=== PATIENT | male | born 1965 | race Caucasian/White ===

== ENCOUNTER 2018-10-16 13:19 | Emergency (ER) | payer SELFPAY ==
--- NOTE | 2018-10-16 13:35 | RAD ---
Exam: Chest one view HISTORY:Chest pain Comparison: 11/23/2017 FINDINGS: Cardiac silhouette:Upper normal Pulmonary vessels: Slightly prominent Costophrenic angles: Clear LUNGS: Patchy interstitial opacities, without consolidation or mass. Pneumothorax: None Osseous abnormalities: None IMPRESSION: 1. Volume overload with interstitial edema.
[2018-10-16] MEDS ORDERED: Nitroglycerin 2% Ointment 1 INCH/1 GM Packet ONE (13:44)
[2018-10-16 13:46] LABS: #Basophils 0.1 thou/uL (0.0-0.2); #Eosinphils 0.1 thou/uL (0.0-0.7); #Monocytes 0.7 thou/uL (0.11-0.59); #Neutrophils 3.7 thou/uL (1.40-6.50); %Eosinophils 1.6 % (0.0-10.0); %Lymphocytes 30.1 % (21.0-51.0); %Monocytes 10.6 % (0.0-10.0); %Neutrophils 55.7 % (42.0-75.0); Hemoglobin 16.2 g/dL (14.0-18.0); Mean Corpuscular Hemoglobin 30.1 pg (27.0-31.0); Mean Platelet Volume 9.6 fL (7.4-10.4); Platelet Count 183 thou/uL (130-400); RBC Distribution Width 11.6 % (11.5-14.5); Red Blood Cell (RBC) Count 5.38 mill/uL (4.70-6.10); White Blood Cell (WBC) Count 6.7 thou/uL (4.8-10.8)
[2018-10-16 14:06] LABS: ALT (SGPT) 168 U/L (8-55); AST (SGOT) 101 U/L (5-34); Albumin 3.9 g/dL (3.5-5.0); Alkaline Phosphatase 69 U/L (40-150); Anion Gap 12 mmol/L (10-20); BUN (Urea Nitrogen) 13 mg/dL (8.4-25.7); Bilirubin, Total 0.6 mg/dL (0.2-1.2); Calc. Creatinine Clearance 0 mL/min (70-130); Calcium 9.4 mg/dL (7.8-10.44); Carbon Dioxide 26 mmol/L (22-29); Chloride 102 mmol/L (98-107); Estimated GFR-MDRD Greater than 90; Globulin 4.4 g/dL (2.4-3.5); Glucose 87 mg/dL (70-105); Potassium 4.1 mmol/L (3.5-5.1); Protein, Total 8.3 g/dL (6.0-8.3); Sodium 136 mmol/L (136-145)
== END 2018-10-16 15:36 | disposition short-term general hospital (02) ==
LOC: MADERS 13:19
DX: I24.9 Acute ischemic heart disease, unspecified (principal); I10 Essential (primary) hypertension; K75.9 Inflammatory liver disease, unspecified; E78.00 Pure hypercholesterolemia, unspecified; I25.2 Old myocardial infarction; F17.210 Nicotine dependence, cigarettes, uncomplicated; Z86.73 Personal history of transient ischemic attack (TIA), and cerebral infarction without residual deficits
CPT/HCPCS: 36415; 71045; 80053; 83880; 84484; 85025; 93005

== ENCOUNTER 2019-09-07 08:37 | Outpatient (CLI) | payer OTHER ==
--- NOTE | 2019-09-07 09:20 | RAD ---
EXAM: XR Cervical Sp Com W/Obl Fl/Ex PROVIDED CLINICAL HISTORY: Fall 3 weeks ago. None in hands. COMPARISON: None FINDINGS: Cervicothoracic junction and C7 vertebral body are obscured due to overlying structures. Trace jose listhesis of C4 on C5 is present. Vertebral body heights are within normal limits. Interspinous distances are also within normal limits. Multilevel facet hypertrophic changes are present. Preverteb ral soft tissues have a normal appearance. There is bony encroachment on the neural foramina bilaterally at the C3-4 level with suggestion of severe bilateral neural foraminal narrowing due to b concetta encroachment as noted on the oblique images. Mild to moderate left-sided neural foraminal narrowing is seen at the C4-5 level. Surgical clips are seen along the right neck. Vascular calcifications are seen overlying the left neck with bulky atherosclerotic calcifications in the region of the carotid arteries. IMPRESSION: 1. Limited evaluation of the C7 vertebral body and cervicothoracic junction. 2. Slight anterolisthesis of C4 on C5 likely related to prominent facet hypertrophic changes. 3. Multilevel facet hypertrophic changes. There is severe bilateral neural foraminal narrowing at C3- 4 level due to bony encroachment. 4. Vascular calcifications overlie the region of the carotid arteries primarily on the left with surg ical clips overlying the right neck.
== END 2019-09-07 08:38 | disposition home or self-care (01) ==
LOC: MADRAD 08:37
PROVIDERS: ATTEND Physician Assistant
DX: R20.2 Paresthesia of skin (principal); M43.12 Spondylolisthesis, cervical region; M47.812 Spondylosis without myelopathy or radiculopathy, cervical region; M48.02 Spinal stenosis, cervical region; I65.23 Occlusion and stenosis of bilateral carotid arteries; Z91.81 History of falling
CPT/HCPCS: 72052

== ENCOUNTER 2019-12-17 14:47 | Emergency (ER) | payer SELFPAY ==
[~2019-12-17 14:47] MED LIST: Iopamidol 370 76% 125 ML VIAL FS ONE; Sodium Chloride 0.9% 100 ML BAG ONE
[2019-12-17 15:01] LABS: #Basophils 0.1 thou/uL (0.0-0.2); #Eosinphils 0.1 thou/uL (0.0-0.7); #Lymphocytes 2.7 thou/uL (1.20-3.40); #Monocytes 0.5 thou/uL (0.11-0.59); #Neutrophils 2.9 thou/uL (1.40-6.50); %Basophils 1.5 % (0.0-1.0); %Eosinophils 1.9 % (0.0-10.0); %Monocytes 8.1 % (0.0-10.0); %Neutrophils 45.6 % (42.0-75.0); Hemoglobin 15.6 g/dL (14.0-18.0); Mean Corpuscular HGB CONC 32.6 g/dL (32.0-36.0); Mean Corpuscular Hemoglobin 29.8 pg (27.0-31.0); Mean Corpuscular Volume 91.2 fL (78.0-98.0); Platelet Count 212 thou/uL (130-400); RBC Distribution Width 11.5 % (11.5-14.5); Red Blood Cell (RBC) Count 5.24 mill/uL (4.70-6.10); White Blood Cell (WBC) Count 6.4 thou/uL (4.8-10.8)
[2019-12-17 15:08] LABS: PTT 31.2 sec (22.9-36.1); Prothrombin Time 12.8 sec (12.0-14.7)
[2019-12-17 15:18] LABS: ALT (SGPT) 169 U/L (8-55); AST (SGOT) 91 U/L (5-34); Alkaline Phosphatase 57 U/L (40-110); Anion Gap 14 mmol/L (10-20); BUN (Urea Nitrogen) 11 mg/dL (8.4-25.7); Bilirubin, Total 0.6 mg/dL (0.2-1.2); Calc. Creatinine Clearance 0 mL/min (70-130); Calcium 9.4 mg/dL (7.8-10.44); Carbon Dioxide 25 mmol/L (22-29); Chloride 105 mmol/L (98-107); Estimated GFR-MDRD Greater than 90; Globulin 4.2 g/dL (2.4-3.5); Glucose 103 mg/dL (70-105); Potassium 3.8 mmol/L (3.5-5.1); Protein, Total 8.2 g/dL (6.0-8.3); Sodium 140 mmol/L (136-145)
[2019-12-17 15:20] LABS: CKMB 0.8 ng/mL (0-6.6); Troponin I 0.014 ng/mL (< 0.028)
[2019-12-17] MEDS ORDERED: Aspirin Chewable 81 MG TAB ONE (15:56)
--- NOTE | 2019-12-17 16:01 | CT ---
EXAM: CT ANGIOGRAM OF THE HEAD AND NECK INDICATION: Possible stroke. Left-sided weakness COMPARISON: 08/09/2019 TECHNIQUE: CT angiogram of the head and neck are performed in the axial plane. Three-dimensional refo rmatted images are submitted for interpretation. FINDINGS: CTA OF THE HEAD WITH AND WITHOUT CONTRAST: POSTCONTRAST CT OF BRAIN: Pathologic enhancement: No pathologic enhancement the brain. Postcontrast soft tissue neck CT: Aerodigestive tract:Nonspecific enhancement along with subcentimeter hypodensities in the maxillary s inuses tonsillar pillar Sinuses: Mild mucosal disease of the ethmoid air cells and bilateral maxillary sinuses. Orbits: Bilateral ocular lenses are appropriately located. Both globes are intact. Retrobulbar fat is preserved. Symmetric attenuation the optic nerves and ocular rectus muscles. Salivary glands:Appropriate attenuation Thyroid gland: Appropriate attenuation Lymph nodes: No evidence of lymphadenopathy by size criteria. Paraspinal muscles: Symmetric attenuation of the sternocleidomastoid muscles. Appropriate attenuation of the paraspinal muscles. Cervical spine:Vertebral body height is maintained. No fracture. No significant central canal stenosi s or significant neural foraminal narrowing. Limited evaluation by technique. Craniocervical lordosis is presumed be positional. Anterolisthesis is also presumed to be due to degenerative change of the facets. Upper mediastinum and lung apices: No acute abnormality CTA OF THE NECK WITH CONTRAST: Aorta: Appropriate enhancement and luminal diameter of the visualized aorta Right carotid artery: Appropriate enhancement and luminal diameter of the origin of the carotid arter y, innominate artery, common carotid artery, carotid bifurcation and internal carotid artery. There is stable mild stenosis of the right carotid bifurcation and proximal internal carotid artery due to a combination of calcified and noncalcified plaque. There appear to be surgical clips suggesting a previous right carotid endarterectomy. Left carotid: Appropriate enhancement and luminal diameter the origin of the left common carotid gus ry, carotid bifurcation and internal carotid artery. There is stable mild atherosclerosis involving the left carotid bifurcation and proximal internal carotid artery. No significant stenosis based upon NASCET criteria. Subclavian arteries:Symmetric and patent Vertebral arteries:Dominant left vertebral artery which is patent throughout its course in the neck. Stable filling defect in the right cervical vertebral artery suggesting eccentric thrombus. CTA OF THE BRAIN: Intracranial internal carotid arteries:Appropriate enhancement and luminal diameter. Atherosclerosis without significant narrowing of the bilateral paraclinoid segments and left cavernous carotid segment Anterior circulation: Appropriate enhancement and luminal diameter the A1 segments, M1 segments, prox imal A2 segments and proximal MCA branches Intracranial vertebral arteries: Appropriate enhancement and luminal diameter. Visualized PICA artery origins have appropriate enhancement and luminal diameter Posterior circulation: Both vertebral arteries supply normal caliber basilar artery. Bilateral P1 seg ments have appropriate enhancement and luminal diameter IMPRESSION: 1. No hemodynamically significant stenosis, occlusion or aneurysmal formation. 2. Stable atherosclerosis involving the cervical and intracranial carotid arteries and right vertebra l artery Results study conveyed to Dr. Hernandez via [employer] 12/17/2019 at 3:57 PM Code CR
--- NOTE | 2019-12-17 16:13 | CT ---
CT BRAIN WITHOUT CONTRAST: Date: 12/17/2019 HISTORY: Left-sided weakness, possible stroke. COMPARISON: 11/26/2019. FINDINGS: Changes of cortical atrophy, chronic small vessel ischemic disease, and old lacunar infarctions of ba sarai ganglia and thalami seen. Ventricular size appropriate and basilar cisterns patent. No evidence of acute infarct, hemorrhage, midline shift, or abnormal extra-axial fluid collections ar e seen. The bony calvarium is intact. The visualized sinuses and mastoid air cells are well aerated. IMPRESSION: No CT evidence of acute intracranial process. POS: [facility]
== END 2019-12-17 16:06 | disposition short-term general hospital (02) ==
LOC: MADERS 14:47
DX: I67.82 Cerebral ischemia (principal); R47.81 Slurred speech; G81.94 Hemiplegia, unspecified affecting left nondominant side; I10 Essential (primary) hypertension; E78.00 Pure hypercholesterolemia, unspecified; I25.2 Old myocardial infarction; M48.00 Spinal stenosis, site unspecified; F17.210 Nicotine dependence, cigarettes, uncomplicated
CPT/HCPCS: 36416; 70450; 70496; 70498; 80053; 82553; 84484; 85025; 85610; 85730; 93005; J3490; Q9967

== ENCOUNTER 2020-03-10 09:36 | Emergency (ER) | payer SELFPAY ==
[2020-03-10 09:49] LABS: #Basophils 0.1 thou/uL (0.0-0.2); #Eosinphils 0.2 thou/uL (0.0-0.7); #Monocytes 0.8 thou/uL (0.11-0.59); #Neutrophils 3.5 thou/uL (1.40-6.50); %Basophils 1.7 % (0.0-1.0); %Eosinophils 2.7 % (0.0-10.0); %Lymphocytes 29.8 % (21.0-51.0); %Monocytes 12.1 % (0.0-10.0); %Neutrophils 53.7 % (42.0-75.0); Hemoglobin 15.5 g/dL (14.0-18.0); Mean Corpuscular HGB CONC 32.9 g/dL (32.0-36.0); Mean Corpuscular Hemoglobin 30.1 pg (27.0-31.0); Mean Corpuscular Volume 91.4 fL (78.0-98.0); Mean Platelet Volume 9.2 fL (7.4-10.4); Platelet Count 197 thou/uL (130-400); RBC Distribution Width 11.9 % (11.5-14.5); Red Blood Cell (RBC) Count 5.14 mill/uL (4.70-6.10); White Blood Cell (WBC) Count 6.5 thou/uL (4.8-10.8)
[2020-03-10 09:55] LABS: PTT 31.5 sec (22.9-36.1); Prothrombin Time 13.4 sec (12.0-14.7)
[2020-03-10 10:05] LABS: ALT (SGPT) 81 U/L (8-55); AST (SGOT) 53 U/L (5-34); Albumin 4.1 g/dL (3.5-5.0); Alkaline Phosphatase 58 U/L (40-110); Anion Gap 16 mmol/L (10-20); BUN (Urea Nitrogen) 8 mg/dL (8.4-25.7); Bilirubin, Total 0.8 mg/dL (0.2-1.2); Calc. Creatinine Clearance 0 mL/min (70-130); Calcium 9.6 mg/dL (7.8-10.44); Carbon Dioxide 24 mmol/L (22-29); Chloride 105 mmol/L (98-107); Estimated GFR-MDRD Greater than 90; Globulin 4.6 g/dL (2.4-3.5); Glucose 112 mg/dL (70-105); Potassium 3.9 mmol/L (3.5-5.1); Protein, Total 8.7 g/dL (6.0-8.3); Sodium 141 mmol/L (136-145)
--- NOTE | 2020-03-10 11:15 | CT ---
CT HEAD WITHOUT CONTRAST: Date: 03/10/2020 INDICATION: Right side deficit. Numbness and tingling with dizziness. Comparison made to head CT of 12/19/2019. FINDINGS: Moderately severe chronic ischemic white matter changes are noted with evidence of numerous lacunar i nfarcts in the deep white matter of both cerebral hemispheres. These findings were present on the nghia or exam. They are prominent for patient's age. There is no evidence of acute mass or hemorrhage. No evidence of acute cortical infarct. Paranasal sinuses and mastoids appear clear. IMPRESSION: Moderately severe chronic ischemic white matter changes with evidence of lacunar infarcts in the deep white matter of both cerebral hemispheres. Probably old lacunar infarcts in the thalami bilaterally. These findings appear stable, but are prominent for patient's age. Acute lacunar infarcts cannot be excluded if there are neurologic deficits. Suggest further evaluation with MRI brain to assess for ac onel lacunar infarct. POS: [facility]
--- NOTE | 2020-03-10 11:16 | CT ---
CT CHEST WITH CONTRAST: Date: 03/10/2020 INDICATION: Cough. Right side deficit. FINDINGS: There is cardiomegaly and mild vascular congestion. The lung llanes are otherwise well aerated with n o evidence of inflammatory infiltrate. There is no evidence of effusion. Mediastinum is unremarkable. Images through upper abdomen unremarkable. Osseous structures show degenerative changes in the spine. Vertebral bodies maintain height and alignment. IMPRESSION: Cardiomegaly with mild vascular congestion. No evidence of infiltrate or effusion. POS: [facility]
[2020-03-10] MEDS ORDERED: Aspirin Chewable 81 MG TAB ONE (11:18)
--- NOTE | 2020-03-10 11:37 | CT ---
CTA HEAD CTA NECK: Multiple axial tomograms obtained through the head and neck following angio protocol with multiplanar reconstruction and 3D post processing. INDICATION: Dizziness and numbness. Assess for possible stroke. Correlation is made to a recent CTA head and ne ck 12/17/2019. FINDINGS: CTA HEAD: Intracranial internal carotid arteries are patent. The anterior cerebral arteries are patent with a dominant right anterior cerebral. Middle cerebral arteries are patent and symmetric. There is no stenosis or occlusion in either M1 se gment. Basilar artery is patent. Posterior cerebral arteries are patent and symmetric. Dural venous sinuses are patent. IMPRESSION: 1. No proximal stenosis or occlusion or significant interval change. 2. The patient has severe chronic ischemic white matter changes with numerous lacunar infarcts in th e deep white matter. Prior MRI of 12/18/2019 described an acute lacunar infarct at that time in the c entrum semiovale. 3. If there are new neurologic deficits, MRI is recommended to assess for new lacunar infarcts. CTA NECK: No stenosis at the origin of the arch vessels. Common carotid arteries are patent and symmetric. Mild to moderate atherosclerotic changes at both bulbs and proximal ICAs. There is thrombus in the b ulb on the right with peripheral calcification bilaterally. The bulb findings are stable from 020. No evidence of hemodynamically significant stenosis. The vertebral arteries are patent. There is atherosclerotic calcification in the cervical portion of both vertebral arteries with mild luminal narrowing seen in the right vertebral artery at the level of C4. This is a stable finding. No soft tissue abnormality. IMPRESSION: 1. Atherosclerotic changes in both bulbs with peripheral thrombus in the right bulb indents calcific ation in the left bulb and left proximal internal carotid artery. No evidence of hemodynamically sig nificant stenosis. The findings are stable. 2. Atherosclerotic changes seen in both vertebral arteries in the cervical portion with mild luminal narrowing in the right vertebral are the C4 level which appears stable. POS: [facility]
[2020-03-10] MEDS ORDERED: Iopamidol 370 76% 125 ML VIAL FS ONE (13:37)
== END 2020-03-10 12:05 | disposition short-term general hospital (02) ==
LOC: MADERS 09:36
DX: I63.9 Cerebral infarction, unspecified (principal); R29.810 Facial weakness; I10 Essential (primary) hypertension; E78.5 Hyperlipidemia, unspecified; R29.702 NIHSS score 2; F17.210 Nicotine dependence, cigarettes, uncomplicated; Z79.899 Other long term (current) drug therapy; Z86.73 Personal history of transient ischemic attack (TIA), and cerebral infarction without residual deficits
CPT/HCPCS: 36415; 36416; 70450; 70496; 70498; 71260; 80053; 84484; 85025; 85610; 85730; 93005; Q9967

== ENCOUNTER 2020-10-29 08:09 | Emergency (ER) | payer OTHER ==
[2020-10-29 08:43] LABS: #Basophils 0.1 thou/uL (0.0-0.2); #Eosinphils 0.1 thou/uL (0.0-0.7); #Lymphocytes 1.5 thou/uL (1.20-3.40); #Monocytes 0.7 thou/uL (0.11-0.59); #Neutrophils 4.8 thou/uL (1.40-6.50); %Basophils 0.7 % (0.0-1.0); %Eosinophils 0.8 % (0.0-10.0); %Lymphocytes 21.5 % (21.0-51.0); %Monocytes 9.8 % (0.0-10.0); %Neutrophils 67.2 % (42.0-75.0); Hemoglobin 16.3 g/dL (14.0-18.0); Mean Corpuscular HGB CONC 31.7 g/dL (32.0-36.0); Mean Corpuscular Volume 94.7 fL (78.0-98.0); Mean Platelet Volume 11.8 fL (7.4-10.4); Platelet Count 174 thou/uL (130-400); RBC Distribution Width 11.9 % (11.5-14.5); Red Blood Cell (RBC) Count 5.43 mill/uL (4.70-6.10); White Blood Cell (WBC) Count 7.2 thou/uL (4.8-10.8)
[2020-10-29 08:46] LABS: Bilirubin Negative (Negative); Blood, Urine Negative (Negative); Clarity Clear (Clear); Glucose, Urine (Dipstick) Negative (Negative); Ketone, Urine Negative (Negative); Leukocyte Negative (Negative); Nitrite Negative (Negative); Protein, Urine (Dipstick) Negative (Neg-Trace); Specific Gravity, Urine 1.015 (1.005-1.030); Urobilinogen 0.2 mg/dL (Less than 2); pH, Urine 7.5 (5.0-9.0)
[2020-10-29 09:04] LABS: ALT (SGPT) 147 U/L (8-55); AST (SGOT) 105 U/L (5-34); Albumin 3.7 g/dL (3.5-5.0); Alkaline Phosphatase 66 U/L (40-110); Anion Gap 15 mmol/L (10-20); BUN (Urea Nitrogen) 8 mg/dL (8.4-25.7); Bilirubin, Total 0.9 mg/dL (0.2-1.2); Calc. Creatinine Clearance 0 mL/min (70-130); Calcium 9.3 mg/dL (7.8-10.44); Carbon Dioxide 23 mmol/L (22-29); Chloride 104 mmol/L (98-107); Globulin 4.1 g/dL (2.4-3.5); Glucose 102 mg/dL (70-105); Magnesium 2.1 mg/dL (1.6-2.6); Potassium 4.1 mmol/L (3.5-5.1); Protein, Total 7.8 g/dL (6.0-8.3); Sodium 138 mmol/L (136-145)
[2020-10-29] MEDS ORDERED: Amlodipine 5 MG TAB ONE (09:49)
[2020-10-29] MEDS ORDERED: Aspirin Chewable 81 MG TAB ONE (10:07)
[2020-10-29] MEDS ORDERED: Nitroglycerin 2% Ointment 1 INCH/1 GM Packet ONE ×2 (10:07→11:38)
== END 2020-10-29 12:31 | disposition short-term general hospital (02) ==
LOC: MADERS 08:09
DX: R07.9 Chest pain, unspecified (principal); R00.1 Bradycardia, unspecified; R29.700 NIHSS score 0; R42 Dizziness and giddiness; R20.0 Anesthesia of skin; F41.1 Generalized anxiety disorder; I10 Essential (primary) hypertension; E78.00 Pure hypercholesterolemia, unspecified; I25.2 Old myocardial infarction; I48.91 Unspecified atrial fibrillation; M48.00 Spinal stenosis, site unspecified; F17.210 Nicotine dependence, cigarettes, uncomplicated; Z86.73 Personal history of transient ischemic attack (TIA), and cerebral infarction without residual deficits
CPT/HCPCS: 70450; 71045; 80053; 81003; 83735; 83880; 84443; 84484; 85025; 93005

== ENCOUNTER 2021-06-09 00:13 | Emergency (ER) | payer OTHER ==
[2021-06-09] MEDS ORDERED: Iopamidol 370 76% 125 ML VIAL FS ONE (00:14)
[2021-06-09 00:36] LABS: #Basophils 0.2 thou/uL (0.0-0.2); #Eosinphils 0.1 thou/uL (0.0-0.7); #Lymphocytes 0.6 thou/uL (1.20-3.40); #Monocytes 0.9 thou/uL (0.11-0.59); #Neutrophils 4.4 thou/uL (1.40-6.50); %Basophils 2.6 % (0.0-1.0); %Lymphocytes 9.7 % (21.0-51.0); %Monocytes 14.3 % (0.0-10.0); %Neutrophils 72.4 % (42.0-75.0); Hemoglobin 14.7 g/dL (14.0-18.0); Mean Corpuscular HGB CONC 33.1 g/dL (32.0-36.0); Mean Corpuscular Hemoglobin 29.8 pg (27.0-31.0); Mean Platelet Volume 9.4 fL (7.4-10.4); Platelet Count 150 thou/uL (130-400); RBC Distribution Width 11.4 % (11.5-14.5); Red Blood Cell (RBC) Count 4.95 mill/uL (4.70-6.10)
[2021-06-09] MEDS ORDERED: Morphine 10 MG/ML VIAL ONE (00:40)
[2021-06-09] MEDS ORDERED: Metoprolol Tartrate 5 MG/5 ML VIAL ONE ×2 (00:41→01:20)
[2021-06-09] MEDS ORDERED: diphenhydrAMINE 12.5 MG/5 ML UDCUP ONE (00:41)
[2021-06-09] MEDS ORDERED: Nitroglycerin 0.4 MG TAB 1 EACH ONE ×2 (00:41→01:20)
[2021-06-09] MEDS ORDERED: diphenhydrAMINE 50 MG/ML VIAL ONE (00:43)
[2021-06-09 00:58] LABS: ALT (SGPT) 23 U/L (8-55); AST (SGOT) 25 U/L (5-34); Albumin 4.3 g/dL (3.5-5.0); Alkaline Phosphatase 64 U/L (40-110); Anion Gap 13 mmol/L (10-20); BUN (Urea Nitrogen) 14 mg/dL (8.4-25.7); Bilirubin, Total 0.4 mg/dL (0.2-1.2); Calc. Creatinine Clearance 0 mL/min (70-130); Calcium 10.1 mg/dL (7.8-10.44); Carbon Dioxide 24 mmol/L (22-29); Chloride 104 mmol/L (98-107); Glucose 105 mg/dL (70-105); Lipase 51 U/L (8-78); Protein, Total 8.3 g/dL (6.0-8.3); Sodium 137 mmol/L (136-145)
[2021-06-09 01:36] LABS: SARS-CoV-2 NAA Rapid Test DETECTED (NotDetected)
[2021-06-09] MEDS ORDERED: Acetaminophen 500 MG TAB ONE (01:53)
[2021-06-09 03:44] LABS: Troponin I Less than 0.010 ng/mL (< 0.028)
== END 2021-06-09 10:10 | disposition home or self-care (01) ==
LOC: MADERS 00:13
DX: U07.1 COVID-19 (principal); I10 Essential (primary) hypertension; I25.2 Old myocardial infarction; I48.91 Unspecified atrial fibrillation; E78.5 Hyperlipidemia, unspecified; F17.210 Nicotine dependence, cigarettes, uncomplicated; Z86.73 Personal history of transient ischemic attack (TIA), and cerebral infarction without residual deficits; Z79.01 Long term (current) use of anticoagulants; Z79.899 Other long term (current) drug therapy
CPT/HCPCS: 71275; 74174; 80053; 83605; 83690; 83880; 84484; 85025; 85379; 93005; 94760; 96374; 96375; 96376; J1200; J2270; Q0163; Q9967; U0002

== ENCOUNTER 2021-08-08 13:47 | Emergency (ER) | payer OTHER ==
[2021-08-08 14:37] LABS: #Basophils 0.1 thou/uL (0.0-0.2); #Eosinphils 0.2 thou/uL (0.0-0.7); #Lymphocytes 2.8 thou/uL (1.20-3.40); #Monocytes 0.7 thou/uL (0.11-0.59); #Neutrophils 5.1 thou/uL (1.40-6.50); %Basophils 1.2 % (0.0-1.0); %Eosinophils 1.7 % (0.0-10.0); %Lymphocytes 31.1 % (21.0-51.0); %Monocytes 8.4 % (0.0-10.0); %Neutrophils 57.6 % (42.0-75.0); Hemoglobin 14.9 g/dL (14.0-18.0); Mean Corpuscular Hemoglobin 29.2 pg (27.0-31.0); Mean Corpuscular Volume 88.4 fL (78.0-98.0); Mean Platelet Volume 8.9 fL (7.4-10.4); Platelet Count 202 thou/uL (130-400); RBC Distribution Width 11.5 % (11.5-14.5); Red Blood Cell (RBC) Count 5.09 mill/uL (4.70-6.10); White Blood Cell (WBC) Count 8.8 thou/uL (4.8-10.8)
[2021-08-08 14:52] LABS: ALT (SGPT) 16 U/L (8-55); AST (SGOT) 17 U/L (5-34); Albumin 4.3 g/dL (3.5-5.0); Alkaline Phosphatase 66 U/L (40-110); Anion Gap 18 mmol/L (10-20); BUN (Urea Nitrogen) 13 mg/dL (8.4-25.7); Bilirubin, Total 0.5 mg/dL (0.2-1.2); Calc. Creatinine Clearance 0 mL/min (70-130); Calcium 9.7 mg/dL (7.8-10.44); Carbon Dioxide 20 mmol/L (22-29); Chloride 103 mmol/L (98-107); Glucose 84 mg/dL (70-105); Potassium 3.4 mmol/L (3.5-5.1); Protein, Total 8.3 g/dL (6.0-8.3); Sodium 138 mmol/L (136-145)
[2021-08-08] MEDS ORDERED: Sodium Chloride 0.9% 500 ML ONE (15:08)
[2021-08-08] MEDS ORDERED: Meclizine HCl 25 MG TAB ONE (15:19)
[2021-08-08] MEDS ORDERED: hydrALAZINE 10 MG TAB ONE (15:23)
[2021-08-08 17:29] LABS: Troponin I Less than 0.010 ng/mL (< 0.028)
== END 2021-08-08 17:47 | disposition home or self-care (01) ==
LOC: MADERS 13:47
DX: R42 Dizziness and giddiness (principal); R29.700 NIHSS score 0; I10 Essential (primary) hypertension; E78.5 Hyperlipidemia, unspecified; I48.91 Unspecified atrial fibrillation; I25.2 Old myocardial infarction; F17.210 Nicotine dependence, cigarettes, uncomplicated; Z86.73 Personal history of transient ischemic attack (TIA), and cerebral infarction without residual deficits
CPT/HCPCS: 70450; 71045; 80053; 83735; 84484; 85025; 93005; J7030

== ENCOUNTER 2021-09-13 09:46 | Emergency (ER) | payer OTHER ==
[2021-09-13] MEDS ORDERED: Acetaminophen 325 MG TAB ONE (10:33)
== END 2021-09-13 10:58 | disposition home or self-care (01) ==
LOC: MADERS 09:46
DX: M54.50 Low back pain, unspecified (principal); I25.2 Old myocardial infarction; I48.91 Unspecified atrial fibrillation; I10 Essential (primary) hypertension; E78.5 Hyperlipidemia, unspecified; F17.210 Nicotine dependence, cigarettes, uncomplicated; Z86.73 Personal history of transient ischemic attack (TIA), and cerebral infarction without residual deficits; Z79.01 Long term (current) use of anticoagulants; Z79.899 Other long term (current) drug therapy
CPT/HCPCS: 99283

== ENCOUNTER 2022-01-01 07:14 | Emergency (ER) | payer OTHER ==
[2022-01-01] MEDS ORDERED: Sodium Chloride 0.9% 1,000 ML ONE (08:04)
[2022-01-01] MEDS ORDERED: Metoclopramide HCl 10 MG/2 ML VIAL ONE (08:04)
[2022-01-01] MEDS ORDERED: diphenhydrAMINE 50 MG/ML VIAL ONE (08:04)
[2022-01-01] MEDS ORDERED: methylPREDNISolone Sod Succ/PF 125 MG/2 ML VIAL ONE (08:04)
[2022-01-01] MEDS ORDERED: methylPREDNISolone Sod Succ/PF 125 MG/2 ML VIAL IVP SCH (08:30)
[2022-01-01] MEDS ORDERED: Metoclopramide HCl 10 MG/2 ML VIAL IVP SCH (08:30)
[2022-01-01] MEDS ORDERED: diphenhydrAMINE 50 MG/ML VIAL IVP SCH (08:30)
[2022-01-01] MEDS ORDERED: Sodium Chloride 0.9% 1,000 ML IV SCH (08:30)
[2022-01-01 08:41] LABS: #Basophils 0.1 thou/uL (0.0-0.2); #Eosinphils 0.2 thou/uL (0.0-0.7); #Lymphocytes 2.1 thou/uL (1.20-3.40); #Monocytes 0.7 thou/uL (0.11-0.59); #Neutrophils 4.1 thou/uL (1.40-6.50); %Basophils 1.8 % (0.0-1.0); %Eosinophils 2.8 % (0.0-10.0); %Monocytes 9.2 % (0.0-10.0); %Neutrophils 57.3 % (42.0-75.0); Hemoglobin 15.8 g/dL (14.0-18.0); Mean Corpuscular HGB CONC 31.7 g/dL (32.0-36.0); Mean Corpuscular Hemoglobin 28.9 pg (27.0-31.0); Mean Corpuscular Volume 91.3 fL (78.0-98.0); Mean Platelet Volume 13.1 fL (7.4-10.4); Platelet Count 185 thou/uL (130-400); RBC Distribution Width 12.4 % (11.5-14.5); Red Blood Cell (RBC) Count 5.46 mill/uL (4.70-6.10); White Blood Cell (WBC) Count 7.1 thou/uL (4.8-10.8)
[2022-01-01 08:45] LABS: INR-International Normal Ratio 1.1; Prothrombin Time 14.3 sec (12.0-14.7)
[2022-01-01 08:53] LABS: Anisocytosis SLIGHT = 6-15 cells (100X) (0-5/hpf); Platelet Morphology Comment Appears Adequate
[2022-01-01 08:55] LABS: ALT (SGPT) 13 U/L (8-55); AST (SGOT) 14 U/L (5-34); Albumin 4.2 g/dL (3.5-5.0); Alkaline Phosphatase 60 U/L (40-110); Anion Gap 14 mmol/L (10-20); BUN (Urea Nitrogen) 10 mg/dL (8.4-25.7); Bilirubin, Total 0.7 mg/dL (0.2-1.2); Calc. Creatinine Clearance 0 mL/min (70-130); Calcium 9.7 mg/dL (7.8-10.44); Carbon Dioxide 24 mmol/L (22-29); Chloride 107 mmol/L (98-107); Estimated GFR 103; Globulin 3.6 g/dL (2.4-3.5); Glucose 102 mg/dL (70-105); Potassium 4.1 mmol/L (3.5-5.1); Protein, Total 7.8 g/dL (6.0-8.3); Sodium 141 mmol/L (136-145)
[2022-01-01] MEDS ORDERED: hydrALAZINE 20 MG/ML VIAL ONE (09:28)
[2022-01-01] MEDS ORDERED: hydrALAZINE 10 MG TAB ONE ×2 (09:28)
== END 2022-01-01 10:22 | disposition home or self-care (01) ==
LOC: MADERS 07:14
DX: G44.209 Tension-type headache, unspecified, not intractable (principal); I10 Essential (primary) hypertension; I25.2 Old myocardial infarction; I48.91 Unspecified atrial fibrillation; E78.5 Hyperlipidemia, unspecified; F17.210 Nicotine dependence, cigarettes, uncomplicated; Z86.73 Personal history of transient ischemic attack (TIA), and cerebral infarction without residual deficits; Z79.01 Long term (current) use of anticoagulants; Z79.899 Other long term (current) drug therapy
CPT/HCPCS: 70450; 80053; 85025; 85610; 93005; 96361; 96374; 96375; J0360; J1200; J2765; J2930; J7050

== ENCOUNTER 2022-05-29 08:18 | Emergency (ER) | payer OTHER | END 2022-05-29 09:00 | disposition home or self-care (01) | LOC: MADERS 08:18 | DX: R22.1 Localized swelling, mass and lump, neck (principal); E78.5 Hyperlipidemia, unspecified; I10 Essential (primary) hypertension; Z79.899 Other long term (current) drug therapy; Z79.01 Long term (current) use of anticoagulants; F17.210 Nicotine dependence, cigarettes, uncomplicated | CPT/HCPCS: 99282 ==

== ENCOUNTER 2022-12-31 06:14 | Emergency (ER) | payer OTHER ==
[2022-12-31 06:57] LABS: #Basophils 0.1 thou/uL (0.0-0.2); #Eosinphils 0.1 thou/uL (0.0-0.7); #Lymphocytes 1.6 thou/uL (1.20-3.40); #Monocytes 0.6 thou/uL (0.11-0.59); #Neutrophils 4.5 thou/uL (1.40-6.50); %Basophils 1.6 % (0.0-1.0); %Eosinophils 1.7 % (0.0-10.0); %Lymphocytes 23.7 % (21.0-51.0); Hemoglobin 14.7 g/dL (14.0-18.0); Mean Corpuscular HGB CONC 33.4 g/dL (32.0-36.0); Mean Corpuscular Hemoglobin 29.8 pg (27.0-31.0); Mean Corpuscular Volume 89.1 fl (78.0-98.0); Mean Platelet Volume 10.9 fL (7.4-10.4); Platelet Count 184 10x3/uL (130-400); RBC Distribution Width 12.4 % (11.5-14.5); Red Blood Cell (RBC) Count 4.94 mill/uL (4.70-6.10); White Blood Cell (WBC) Count 6.9 10x3/uL (4.8-10.8)
[2022-12-31 07:14] LABS: ALT (SGPT) 16 U/L (8-55); AST (SGOT) 13 U/L (5-34); Alkaline Phosphatase 59 U/L (40-110); Anion Gap 13 mmol/L (10-20); BUN (Urea Nitrogen) 15 mg/dL (8.4-25.7); Bilirubin, Total 0.5 mg/dL (0.2-1.2); Calc. Creatinine Clearance 0 mL/min (70-130); Calcium 9.5 mg/dL (7.8-10.44); Carbon Dioxide 26 mmol/L (22-29); Chloride 102 mmol/L (98-107); Estimated GFR 100; Globulin 3.5 g/dL (2.4-3.5); Glucose 102 mg/dL (70-105); Magnesium 2.1 mg/dL (1.6-2.6); Potassium 3.9 mmol/L (3.5-5.1); Protein, Total 7.5 g/dL (6.0-8.3); Sodium 137 mmol/L (136-145)
[2022-12-31 07:34] LABS: Thyroid Stimulating Hormone 1.7523 uIU/mL (0.35-4.94)
[2022-12-31 12:04] LABS: Free T4 (Free Thyroxine) 1.08 ng/dL (0.70-1.48)
== END 2022-12-31 07:24 | disposition home or self-care (01) ==
LOC: MADERS 06:14
DX: S16.1XXA Strain of muscle, fascia and tendon at neck level, initial encounter (principal); F41.9 Anxiety disorder, unspecified; E78.5 Hyperlipidemia, unspecified; I10 Essential (primary) hypertension; F17.210 Nicotine dependence, cigarettes, uncomplicated; X50.0XXA Overexertion from strenuous movement or load, initial encounter; Z86.73 Personal history of transient ischemic attack (TIA), and cerebral infarction without residual deficits
CPT/HCPCS: 36415; 80053; 82306; 83735; 84439; 84443; 85025; 99283

== ENCOUNTER 2023-07-06 14:26 | Emergency (ER) | payer OTHER ==
[2023-07-06 15:01] LABS: #Basophils 0.1 thou/uL (0.0-0.2); #Eosinphils 0.2 thou/uL (0.0-0.7); #Lymphocytes 2.1 thou/uL (1.20-3.40); #Monocytes 0.8 thou/uL (0.11-0.59); #Neutrophils 4.7 thou/uL (1.40-6.50); %Basophils 1.4 % (0.0-1.0); %Eosinophils 2.6 % (0.0-10.0); %Lymphocytes 27.1 % (21.0-51.0); %Monocytes 9.6 % (0.0-10.0); %Neutrophils 59.2 % (42.0-75.0); Hematocrit 41.2 % (42.0-52.0); Hemoglobin 13.5 g/dL (14.0-18.0); Mean Corpuscular HGB CONC 32.8 g/dL (32.0-36.0); Mean Corpuscular Hemoglobin 29.5 pg (27.0-31.0); Platelet Count 149 10x3/uL (130-400); Red Blood Cell (RBC) Count 4.58 mill/uL (4.70-6.10); White Blood Cell (WBC) Count 7.9 10x3/uL (4.8-10.8)
[2023-07-06 15:09] LABS: PTT 33.9 sec (22.9-36.1)
[2023-07-06 15:13] LABS: ALT (SGPT) 19 U/L (8-55); AST (SGOT) 14 U/L (5-34); Albumin 4.1 g/dL (3.5-5.0); Alkaline Phosphatase 50 U/L (40-110); Anion Gap 12 mmol/L (10-20); BUN (Urea Nitrogen) 13 mg/dL (8.4-25.7); Bilirubin, Total 0.4 mg/dL (0.2-1.2); Calc. Creatinine Clearance 0 mL/min (70-130); Calcium 9.3 mg/dL (7.8-10.44); Carbon Dioxide 26 mmol/L (22-29); Chloride 104 mmol/L (98-107); Estimated GFR 103; Globulin 3.3 g/dL (2.4-3.5); Glucose 81 mg/dL (70-105); Potassium 3.4 mmol/L (3.5-5.1); Protein, Total 7.4 g/dL (6.0-8.3); Sodium 139 mmol/L (136-145)
[2023-07-06 15:17] LABS: Troponin I Less than 0.010 ng/mL (< 0.028)
[2023-07-06 16:12] LABS: Bilirubin Negative (Negative); Blood, Urine Trace (Negative); Clarity Clear (Clear); Glucose, Urine (Dipstick) Negative (Negative); Ketone, Urine Negative (Negative); Leukocyte Negative (Negative); Nitrite Negative (Negative); Protein, Urine (Dipstick) Negative (Neg-Trace); Specific Gravity, Urine 1.015 (1.005-1.030); Urobilinogen 0.2 mg/dL (Less than 2)
[2023-07-06 16:13] LABS: Bacteria/HPF Rare-Few HPF (None Seen); CAUTI Indications for Culture Alt mental st,lethar; RBC/HPF 0-3 HPF (0-3); Squamous Epithelial 0-3 HPF (0-3); WBC/HPF 0-3 HPF (0-3)
[2023-07-06 16:15] LABS: Urine Culture Reflex No No
== END 2023-07-06 17:00 | disposition home or self-care (01) ==
LOC: MADERS 14:26
DX: R29.898 Other symptoms and signs involving the musculoskeletal system (principal); E78.5 Hyperlipidemia, unspecified; I10 Essential (primary) hypertension; F17.210 Nicotine dependence, cigarettes, uncomplicated; Z79.899 Other long term (current) drug therapy; W18.30XA Fall on same level, unspecified, initial encounter
CPT/HCPCS: 36415; 70450; 70486; 70496; 70498; 81001; 84443; 84484; 93005

== ENCOUNTER 2023-10-28 15:45 | Emergency (ER) | payer OTHER ==
[2023-10-28] MEDS ORDERED: Lactated Ringer's 1,000 ML ONE (16:27)
[2023-10-28 16:42] LABS: Eosinophils 1 % (0-10); Hematocrit 42.8 % (42.0-52.0); Hemoglobin 13.3 g/dL (14.0-18.0); Hypochromia SLIGHT = 6-15 cells (100X) (0-5/hpf); Lymphocytes 31 % (21-51); MDiff Complete? YES; Mean Corpuscular HGB CONC 31.1 g/dL (32.0-36.0); Mean Corpuscular Hemoglobin 27.9 pg (27.0-31.0); Mean Corpuscular Volume 89.8 fl (78.0-98.0); Mean Platelet Volume 7.9 fL (7.4-10.4); Monocytes 12 % (0-10); Neutrophil 54 % (42-75); Platelet Adequacy Comment Appears Adequate; Platelet Count 152 10x3/uL (130-400); Red Blood Cell (RBC) Count 4.76 mill/uL (4.70-6.10); White Blood Cell (WBC) Count 7.1 10x3/uL (4.8-10.8)
[2023-10-28 16:47] LABS: ALT (SGPT) 16 U/L (8-55); AST (SGOT) 16 U/L (5-34); Alkaline Phosphatase 55 U/L (40-110); Anion Gap 15 mmol/L (10-20); BUN (Urea Nitrogen) 12 mg/dL (8.4-25.7); Bilirubin, Total 0.8 mg/dL (0.2-1.2); CK (CPK) 111 U/L (30-200); Calc. Creatinine Clearance 0 mL/min (70-130); Calcium 9.2 mg/dL (7.8-10.44); Carbon Dioxide 23 mmol/L (22-29); Chloride 103 mmol/L (98-107); Estimated GFR 100; Globulin 3.2 g/dL (2.4-3.5); Glucose 95 mg/dL (70-105); Magnesium 2.1 mg/dL (1.6-2.6); Potassium 3.5 mmol/L (3.5-5.1); Protein, Total 7.2 g/dL (6.0-8.3); Sodium 137 mmol/L (136-145)
[2023-10-28 16:48] LABS: Troponin I Less than 0.010 ng/mL (< 0.028)
== END 2023-10-28 18:12 | disposition home or self-care (01) ==
LOC: MADERS 15:45
DX: E86.0 Dehydration (principal); R53.1 Weakness; E78.5 Hyperlipidemia, unspecified; I10 Essential (primary) hypertension; F17.210 Nicotine dependence, cigarettes, uncomplicated; Z79.899 Other long term (current) drug therapy; Z79.01 Long term (current) use of anticoagulants
CPT/HCPCS: 80053; 82550; 83735; 84443; 84484; 85025; 93005; 96360; J7120

== ENCOUNTER 2024-01-01 05:30 | Emergency (ER) | payer OTHER ==
[2024-01-01 06:28] LABS: Hematocrit 43.4 % (42.0-52.0); Hemoglobin 13.6 g/dL (14.0-18.0); Mean Corpuscular HGB CONC 31.4 g/dL (32.0-36.0); Mean Corpuscular Volume 89.1 fl (78.0-98.0); Mean Platelet Volume 8.4 fL (7.4-10.4); Platelet Count 157 10x3/uL (130-400); RBC Distribution Width 12.4 % (11.5-14.5); Red Blood Cell (RBC) Count 4.87 mill/uL (4.70-6.10); White Blood Cell (WBC) Count 6.7 10x3/uL (4.8-10.8)
[2024-01-01 06:29] LABS: #Basophils 0.1 thou/uL (0.0-0.2); #Eosinphils 0.1 thou/uL (0.0-0.7); #Lymphocytes 1.7 thou/uL (1.20-3.40); #Monocytes 0.7 thou/uL (0.11-0.59); #Neutrophils 4.1 thou/uL (1.40-6.50); %Basophils 1.5 % (0.0-1.0); %Monocytes 11.1 % (0.0-10.0); %Neutrophils 60.4 % (42.0-75.0)
[2024-01-01 06:41] LABS: Bilirubin Negative (Negative); Blood, Urine Trace (Negative); Clarity Clear (Clear); Glucose, Urine (Dipstick) Negative (Negative); Ketone, Urine Negative (Negative); Leukocyte Negative (Negative); Nitrite Negative (Negative); Protein, Urine (Dipstick) Negative (Neg-Trace); Urobilinogen 0.2 mg/dL (Less than 2); pH, Urine 7.5 (5.0-9.0)
[2024-01-01 06:42] LABS: CAUTI Indications for Culture Dysuria,urgency,freq; RBC/HPF 0-3 HPF (0-3); Squamous Epithelial None Seen HPF (0-3); WBC/HPF None Seen HPF (0-3)
[2024-01-01 06:43] LABS: Urine Culture Reflex No No
[2024-01-01 06:47] LABS: ALT (SGPT) 13 U/L (8-55); AST (SGOT) 13 U/L (5-34); Albumin 3.9 g/dL (3.5-5.0); Alkaline Phosphatase 51 U/L (40-110); Anion Gap 15 mmol/L (10-20); BUN (Urea Nitrogen) 16 mg/dL (8.4-25.7); Bilirubin, Total 0.4 mg/dL (0.2-1.2); Calc. Creatinine Clearance 0 mL/min (70-130); Calcium 9.7 mg/dL (7.8-10.44); Carbon Dioxide 25 mmol/L (22-29); Chloride 102 mmol/L (98-107); Estimated GFR 93; Globulin 3.8 g/dL (2.4-3.5); Glucose 96 mg/dL (70-105); Potassium 3.9 mmol/L (3.5-5.1); Protein, Total 7.7 g/dL (6.0-8.3); Sodium 138 mmol/L (136-145)
== END 2024-01-01 07:00 | disposition home or self-care (01) ==
LOC: MADERS 05:30
DX: Z71.1 Person with feared health complaint in whom no diagnosis is made (principal); I10 Essential (primary) hypertension; E78.5 Hyperlipidemia, unspecified; J44.9 Chronic obstructive pulmonary disease, unspecified; Z86.73 Personal history of transient ischemic attack (TIA), and cerebral infarction without residual deficits; Z87.891 Personal history of nicotine dependence; Z79.899 Other long term (current) drug therapy; Z79.01 Long term (current) use of anticoagulants
CPT/HCPCS: 80053; 81001; 85025; 93005

== ENCOUNTER 2024-01-25 15:42 | Emergency (ER) | payer OTHER ==
[2024-01-25 16:00] LABS: Bilirubin Negative (Negative); Blood, Urine Negative (Negative); Glucose, Urine (Dipstick) Negative (Negative); Ketone, Urine Negative (Negative); Leukocyte Negative (Negative); Nitrite Negative (Negative); Protein, Urine (Dipstick) Negative (Neg-Trace); Specific Gravity, Urine 1.015 (1.005-1.030); Urobilinogen 0.2 mg/dL (Less than 2)
[2024-01-25 16:01] LABS: Clarity Clear (Clear)
[2024-01-25 16:06] LABS: Bacteria/HPF Rare-Few HPF (None Seen); CAUTI Indications for Culture Pelvic or flank pain; RBC/HPF 0-3 HPF (0-3); Squamous Epithelial 0-3 HPF (0-3); Urine Culture Reflex No No; WBC/HPF 0-3 HPF (0-3)
== END 2024-01-25 16:09 | disposition home or self-care (01) ==
LOC: MADERS 15:42
DX: T67.5XXA Heat exhaustion, unspecified, initial encounter (principal); I10 Essential (primary) hypertension; E78.5 Hyperlipidemia, unspecified; J44.9 Chronic obstructive pulmonary disease, unspecified; F17.210 Nicotine dependence, cigarettes, uncomplicated
CPT/HCPCS: 81001; 99284

== ENCOUNTER 2025-03-24 14:03 | Emergency (ER) | payer OTHER ==
[2025-03-24 14:59] LABS: Glucose, Urine (Dipstick) Negative (Negative); Leukocyte Negative (Negative); Protein, Urine (Dipstick) Negative (Neg-Trace); Specific Gravity, Urine 1.020 (1.005-1.030)
[2025-03-24 15:04] LABS: CAUTI Indications for Culture Dysuria,urgency,freq; RBC/HPF None Seen HPF (0-3)
[2025-03-24 15:05] LABS: Bacteria/HPF Rare-Few HPF (None Seen); Urine Culture Reflex No No; WBC/HPF 0-3 HPF (0-3)
[2025-03-24 15:22] LABS: Hematocrit 28.1 % (42.0-52.0); Hemoglobin 8.1 g/dL (14.0-18.0); Mean Corpuscular Hemoglobin 19.0 pg (27.0-31.0); Mean Corpuscular Volume 65.9 fl (78.0-98.0); Platelet Count 196 10x3/uL (130-400); Red Blood Cell (RBC) Count 4.27 mill/uL (4.70-6.10); White Blood Cell (WBC) Count 6.7 10x3/uL (4.8-10.8)
[2025-03-24 15:40] LABS: Troponin I Less than 0.010 ng/mL (< 0.028)
[2025-03-24 15:45] LABS: MDiff Complete? YES; Microcytosis SLIGHT = 6-15 cells (100X) (0-5/hpf); Platelet Adequacy Comment Appears Adequate
[2025-03-24 15:48] LABS: ALT (SGPT) 15 U/L (Less than 45); AST (SGOT) 30 U/L (11-34); Albumin 4.1 g/dL (3.1-4.5); Alkaline Phosphatase 49 U/L (40-110); Anion Gap 18 mmol/L (10-20); BUN (Urea Nitrogen) 20 mg/dL (8.4-25.7); Bilirubin, Total 0.2 mg/dL (0.3-1.2); Calc. Creatinine Clearance 0 mL/min (70-130); Calcium 8.6 mg/dL (7.8-10.44); Carbon Dioxide 20 mmol/L (22-29); Chloride 108 mmol/L (98-107); Globulin 3.3 g/dL (2.4-3.5); Glucose 95 mg/dL (70-105); Potassium 4.6 mmol/L (3.5-5.1); Sodium 141 mmol/L (136-145)
== END 2025-03-24 17:50 ==
LOC: MADERS 14:03
DX: R42 Dizziness and giddiness (principal); I10 Essential (primary) hypertension; E78.5 Hyperlipidemia, unspecified; J44.9 Chronic obstructive pulmonary disease, unspecified; F17.210 Nicotine dependence, cigarettes, uncomplicated; Z86.73 Personal history of transient ischemic attack (TIA), and cerebral infarction without residual deficits; Z79.01 Long term (current) use of anticoagulants; Z79.899 Other long term (current) drug therapy
CPT/HCPCS: 80053; 81001; 83880; 84484; 85025